=== PATIENT | female | born 1985 | race African-American/Black ===

== ENCOUNTER 2016-12-12 23:01 | Emergency (ER) | payer OTHER, MEDICAID ==
[~2016-12-12] VITALS: Ht 160 cm; Wt 65.8 kg
[~2016-12-12 23:01] MED LIST: IBUPROFEN600 MG ORAL; IRON SUPPLEMEN325 M1 PO; LACTULOSE20 GM/301 ORAL; NKM; VICODIN 5-5001 EACH PO
[2016-12-12] MEDS ORDERED: PredniSONE 20mg tab ORAL ONE (23:30)
[2016-12-12] MEDS ORDERED: Albuterol ud Inhalation HHN ONE (23:30)
[2016-12-12] MEDS ORDERED: Ipratropium 0.02% Inh Soln 2.5ml UD HHN ONE (23:30)
[2016-12-13 00:12] VITALS: BP 97/70
[2016-12-13] MEDS ORDERED: PREDNISONE20 MG ORAL (00:14)
[2016-12-13] MEDS ORDERED: AZITHROMYCIN250 MG ORAL (00:14)
[2016-12-13] MEDS ORDERED: ALBUTEROL SULF8.5 GM INH (00:14)
--- NOTE | 2016-12-13 00:14 | Emergency Room Report ---
History of Present Illness General Chief Complaint: Upper Respiratory Illness Source: Patient Present Illness HPI 31-year-old female with no past medical history. She's been having of cough the last 2 months. Initially she had a cold but now coughing. Nonproductive in nature. Worse with inspiration. Worse with talking. No fever or chills. No other complaint. No history of asthma. No leg edema. No chest pain. Allergies: Coded Allergies: No Known Allergies (Unverified , 07/19/12) Patient History Past Medical History: none, see triage record, old chart reviewed Past Surgical History: none Pertinent Family History: none Social History: Denies: smoking Last Menstrual Period: November Now: No Immunizations: other Reviewed Nursing Documentation: PMH: Agreed, PSxH: Agreed Nursing Documentation-PMH Hx Cardiac Problems: No - ROCIO PINO 07/2014 Hx Cancer: No Hx Gastrointestinal Problems: No Hx Neurological Problems: No Review of Systems Eye: Denies: blurred vision, eye pain ENT: Denies: ear pain, nose congestion, throat swelling Respiratory: Reports: cough, shortness of breath Cardiovascular: Denies: chest pain, palpitations Gastrointestinal: Denies: abdominal pain, diarrhea, nausea, vomiting Musculoskeletal: Denies: back pain, joint pain Skin: Denies: rash Neurological: Denies: headache, numbness Endocrine: Denies: increased thirst, increased urine Hematologic/Lymphatic: Denies: easy bruising All Other Systems: negative except mentioned in HPI Physical Exam Vital Signs Date Time Temp Pulse Resp B/P Pulse Ox O2 Delivery O2 Flow Rate FiO2 12/12/16 23:12 97.3 77 16 97/70 97 Room Air vitals normal Sp02 EP Interpretation: reviewed, normal General Appearance: well appearing, no apparent distress, alert Head: normocephalic, atraumatic Eyes: bilateral eye EOMI, bilateral eye PERRL ENT: hearing grossly normal, normal pharynx Neck: full range of motion, supple, no meningismus Respiratory: chest non-tender, normal breath sounds, other - Patient with coughing fits with inspiration Cardiovascular #1: regular rate, rhythm, no murmur Gastrointestinal: normal bowel sounds, non tender, no mass, no organomegaly, no bruit, non-distended Musculoskeletal: back normal, gait/station normal, normal range of motion Psychiatric: mood/affect normal Skin: warm/dry Medical Decision Making Diagnostic Impression: Primary Impression: Atypical pneumonia Additional Impression: Acute bronchospasm ER Course With bronchospasm and bronchitis secondary to most likely viral infection initially. Because been ongoing for 2 months, worse him for atypical pneumonia. We'll put her on antibiotics. She felt better after breathing treatment. Steroids also given. No evidence of ACS, PE, dissection to name a few. Chest X-Ray Diagnostic Results Chest X-Ray Ordered: Yes # of Views/Limited/Complete: 1 View EP Interpretation: Yes Interpretation: no consolidation, no effusion, no pneumothorax Indication: Shortness of Breath Impression: No acute disease Interpreting ER Provider: Doreen Langley MD Last Vital Signs Date Time Temp Pulse Resp B/P Pulse Ox O2 Delivery O2 Flow Rate FiO2 12/12/16 23:43 69 20 100 Room Air 12/12/16 23:12 97.3 97/70 Status: improved Disposition: HOME, SELF-CARE Condition: Stable Scripts Azithromycin* (ZITHROMAX*) 250 Mg Tablet 250 MG ORAL DAILY, #6 TAB 0 Refills Take two tablets by mouth today, then take one tablet by mouth daily for four days Prov: DOREEN LANGLEY M.D. 12/13/16 Prednisone* (PREDNISONE*) 20 Mg Tablet 60 MG ORAL DAILY, #12 TAB Prov: DOREEN LANGLEY M.D. 12/13/16 Albuterol Sulfate* (ALBUTEROL SULFATE MDI*) 8.5 Gm Hfa.aer.ad 2 PUFF INH Q4H Y for cough/wheezing, #1 EA 0 Refills Prov: DOREEN LANGLEY M.D. 12/13/16 Referrals: [facility],REFERRING (PCP) Additional Instructions: Followup with your DrMaria Luisa in 2 to 3 days. Return if symptom worsen. DOREEN LANGLEY M.D. Dec 13, 2016 00:14
[2016-12-13 00:25] VITALS: BP 102/69
--- NOTE | 2016-12-13 11:12 | Diagnostic Imaging Report ---
Indication: SOB Technique: One view of the chest Comparison: none Findings: Lungs and pleural spaces are clear. Heart size is normal. Impression: No acute process
== END 2016-12-13 00:25 | disposition home or self-care (01) ==
LOC: EMR 23:43
DX: J18.9 Pneumonia, unspecified organism (principal); J98.01 Acute bronchospasm
CPT/HCPCS: 71010; 94640; 94664; 99284

== ENCOUNTER 2019-05-16 05:19 | Emergency (ER) | payer BC, MEDICAID ==
[~2019-05-16] VITALS: Ht 160 cm; Wt 58.5 kg
[~2019-05-16 05:19] MED LIST changes: +ALBUTEROL SULF8.5 GM INH; +AZITHROMYCIN250 MG ORAL; +PREDNISONE20 MG ORAL
[2019-05-16 05:22] VITALS: BP 106/69
--- NOTE | 2019-05-16 05:22 | NUR ---
ED Nurse Note: Walk-in patient presents accopanied by pediatric son, with complaints of nausea, vomitting and diarrhea x 5 hours. ERMD informed, I will continue to monitor.
--- NOTE | 2019-05-16 05:50 | Emergency Room Report ---
History of Present Illness General Chief Complaint: Nausea, Vomiting, and Diarrhea Source: Patient Present Illness HPI This is a 34-year-old female with no past medical history. She presents with complaint of abdominal pain with nausea vomiting diarrhea. Woke up this morning with a symptom. Pain is crampy in nature. Unable to keep anything down. Diarrhea is watery. No fever chills. Her son has been sick with the same. Few members of the family are also sick this morning. Allergies: Coded Allergies: No Known Allergies (Unverified , 07/19/12) Patient History Past Medical History: none, see triage record, old chart reviewed Past Surgical History: none Pertinent Family History: none Social History: Denies: smoking Last Menstrual Period: 04/06/19 Now: No : 5 Para: 2 Immunizations: other Reviewed Nursing Documentation: PMH: Agreed; PSxH: Agreed Nursing Documentation-PMH Past Medical History: No Stated History Hx Cardiac Problems: No Hx Hypertension: No Hx Pacemaker: No Hx Asthma: No Hx COPD: No Hx Diabetes: No Hx Cancer: No Hx Gastrointestinal Problems: No Hx Dialysis: No History Of Psychiatric Problem: No Hx Neurological Problems: No Hx Cerebrovascular Accident: No Hx Seizures: No Review of Systems Eye: Denies: eye pain, blurred vision ENT: Denies: ear pain, nose congestion, throat swelling Respiratory: Denies: cough, shortness of breath Cardiovascular: Denies: chest pain, palpitations Gastrointestinal: Reports: abdominal pain, diarrhea, nausea, vomiting Musculoskeletal: Denies: back pain, joint pain Skin: Denies: rash Neurological: Denies: headache, numbness Endocrine: Denies: increased thirst, increased urine Hematologic/Lymphatic: Denies: easy bruising All Other Systems: negative except mentioned in HPI Physical Exam Vital Signs Date Time Temp Pulse Resp B/P (MAP) Pulse Ox O2 Delivery O2 Flow Rate FiO2 05/16/19 05:22 98.8 77 17 106/69 (81) 97 Room Air Vitals normal Sp02 EP Interpretation: reviewed, normal General Appearance: well appearing, no apparent distress, alert Head: normocephalic, atraumatic Eyes: bilateral eye PERRL, bilateral eye EOMI ENT: hearing grossly normal, normal pharynx Neck: full range of motion, supple, no meningismus Respiratory: chest non-tender, lungs clear, normal breath sounds Cardiovascular #1: regular rate, rhythm, no murmur Gastrointestinal: non tender, no mass, no organomegaly, no bruit, non-distended , abnormal bowel sounds - Hyper active, gurgling sounds, tenderness - Mild, periumbilical Musculoskeletal: back normal, normal range of motion, gait/station normal Psychiatric: mood/affect normal Medical Decision Making Diagnostic Impression: Primary Impression: Nausea, vomiting, and diarrhea ER Course Patient with nausea vomiting diarrhea. This can be either food poisoning or stomach virus. Exam is pretty benign. Abdominal is soft. No evidence of acute abdomen or obstruction. Unlikely to be an acute abdomen with multiple family members sick. Last Vital Signs Date Time Temp Pulse Resp B/P (MAP) Pulse Ox O2 Delivery O2 Flow Rate FiO2 05/16/19 05:22 98.8 77 17 106/69 (81) 97 Room Air Status: improved Disposition: HOME, SELF-CARE Condition: Stable Scripts Ibuprofen* (MOTRIN*) 600 Mg Tablet 600 MG ORAL THREE TIMES A DAY, #30 TAB 0 Refills Prov: Wolfgang Langley MD 05/16/19 Ondansetron (Zofran) 4 Mg Tablet 4 MG ORAL Q6H PRN for Nausea & Vomiting, #20 TAB 0 Refills Prov: Wolfgang Langley MD 05/16/19 Referrals: [facility]REFERR[facility] (PCP) Additional Instructions: Increase fluids. May take Pepto-Bismol for diarrhea. Do not stop the diarrhea antidiarrhea medication. Follow-up with your doctor in 2 3 days for recheck if not better. Return if worse. Wolfgang Langley MD May 16, 2019 05:50
--- NOTE | 2019-05-16 06:04 | NUR ---
ED Nurse Note: Patient tolerated medication well. Will continue to monitor patient for fluid challenge.
[2019-05-16] MEDS ORDERED: ZOFRAN4 MG ORAL (06:18)
[2019-05-16] MEDS ORDERED: IBUPROFEN600 MG ORAL (06:18)
--- NOTE | 2019-05-16 06:35 | NUR ---
ED Nurse Note: Patient cleared for discharge by ERMD when ready. Patient is resting comfortably with no s/s of acute distress. Will continue to monitor until departure.
--- NOTE | 2019-05-16 07:06 | NUR ---
ED Nurse Note: Pateint departed with all belongings accompanied by son in stable condition.
[2019-05-16 07:07] VITALS: BP 106/69
== END 2019-05-16 07:06 | disposition home or self-care (01) ==
LOC: EMR 05:31
DX: R11.2 Nausea with vomiting, unspecified (principal); R19.7 Diarrhea, unspecified
CPT/HCPCS: 99282

== ENCOUNTER 2020-08-04 11:11 | Emergency (ER) | payer MEDICAID ==
[~2020-08-04] VITALS: Ht 160 cm; Wt 66.2 kg
[~2020-08-04 11:11] MED LIST changes: +ZOFRAN4 MG ORAL
[2020-08-04 12:02] VITALS: BP 105/68
--- NOTE | 2020-08-04 12:09 | NUR ---
ED Nurse Note: Patient from home and walked in due to sore throat and right ear pain since yesterday. AAO x4 and ambulatory.
--- NOTE | 2020-08-04 12:36 | Emergency Room Report ---
History of Present Illness General Chief Complaint: Sore Throat Source: Patient Present Illness HPI Patient presents with 2 to 3 days of right ear pain and throat pain. She denies fevers or chills. 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 She also complains about right ear pain. There is no change in hearing or discharge. The pain is rated 7/10. It is aching. She also has pain when she is swallowing. Her boyfriend tested +2 months ago. She isolated from him during that time. She tested negative at that time and that was the last Covid test she had. No fevers, chills, chest pain, nausea, vomiting, diarrhea, dysuria, abdominal pain, shortness of breath, joint pain, rashes, headache. 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 COVID-19 Screening: Negative COVID-19 COVID-19 Testing Source: [employer] Patient History Past Medical History: see triage record Social History: Denies: smoking, alcohol use Social History Narrative [employer] business Last Menstrual Period: 07/07/20 Now: No Reviewed Nursing Documentation: PMH: Agreed; PSxH: Agreed Nursing Documentation-PMH Past Medical History: No Stated History Hx Cardiac Problems: No Hx Hypertension: No Hx Pacemaker: No Hx Asthma: No Hx COPD: No Hx Diabetes: No Hx Cancer: No Hx Gastrointestinal Problems: No Hx Dialysis: No Hx Neurological Problems: No Hx Cerebrovascular Accident: No Hx Seizures: No Review of Systems All Other Systems: negative except mentioned in HPI Physical Exam Vital Signs Date Time Temp Pulse Resp B/P (MAP) Pulse Ox O2 Delivery O2 Flow Rate FiO2 08/04/20 12:02 98.4 101 18 105/68 95 Room Air Sp02 EP Interpretation: reviewed, normal General Appearance: well appearing, no apparent distress, GCS 15 Head: normocephalic Eyes: bilateral eye normal inspection, bilateral eye PERRL, bilateral eye EOMI ENT: moist mucus membranes, pharyngeal erythema, other - Right TM with fluid, minimal erythema, no canal inflammation. Left normal. Neck: normal inspection Respiratory: lungs clear, normal breath sounds Cardiovascular #1: regular rate, rhythm Cardiovascular #2: 2+ radial (R) Gastrointestinal: normal inspection Musculoskeletal: gait/station normal Neurologic: alert, grossly normal Psychiatric: mood/affect normal Skin: no rash, warm/dry Medical Decision Making Diagnostic Impression: Primary Impression: Otitis media Qualified Codes: H65.01 - Acute serous otitis media, right ear Additional Impressions: Pharyngitis Qualified Codes: J02.9 - Acute pharyngitis, unspecified COVID-19 ruled out by laboratory testing ER Course Patient presents with sore throat and right ear pain. Differential includes otitis media, pharyngitis, strep, COVID-19 amongst others. Due to the patient's exposure to childcare Covid testing is initiated. Clinical exam is consistent with otitis media and antibiotics and analgesics are indicated. Covid tested negative. Discussed findings with patient and treatment plan. Patient stable for outpatient observation and treatment. Last Vital Signs Date Time Temp Pulse Resp B/P (MAP) Pulse Ox O2 Delivery O2 Flow Rate FiO2 08/04/20 13:47 98.3 98 16 114/70 99 Room Air Status: improved Disposition: HOME, SELF-CARE Condition: Improved Scripts Chlorpheniramine Maleate (CHLOR-TRIMETON) 4 Mg Tablet 4 MG PO Q6HR, #10 TAB Prov: Long House MD 08/04/20 Ibuprofen* (MOTRIN*) 600 Mg Tablet 600 MG ORAL Q6H PRN for FOR PAIN, #20 TAB 0 Refills Prov: Long House MD 08/04/20 Amoxicillin* (AMOXIL*) 500 Mg Capsule 500 MG ORAL THREE TIMES A DAY, #21 CAP Prov: Long House MD 08/04/20 Long House MD Aug 04, 2020 12:36
[2020-08-04] MEDS ORDERED: CHLOR-TRIMETON4 MG PO (13:43)
[2020-08-04] MEDS ORDERED: IBUPROFEN600 M1 ORAL (13:43)
[2020-08-04] MEDS ORDERED: AMOXICILLIN500 MG ORAL (13:43)
[2020-08-04 13:47] VITALS: BP 114/70
--- NOTE | 2020-08-04 13:47 | NUR ---
ER DISCHARGE NOTE: Patient is cleared to be discharged per ERMD, pt is aox4, on room air, with stable vital signs. pt was given dc and prescription instructions, pt was able to verbalize understanding, pt id band removed. pt is able to ambulate with steady gait. pt took all belongings.
== END 2020-08-04 13:47 | disposition home or self-care (01) ==
LOC: EMR 12:45
DX: H65.01 Acute serous otitis media, right ear (principal); J02.9 Acute pharyngitis, unspecified
CPT/HCPCS: 99283